=== PATIENT | male | born 2000 | race Caucasian/White ===

== ENCOUNTER 2020-12-20 17:54 | Emergency (ER) | payer BC ==
[2020-12-20] MEDS ORDERED: Fentanyl 100 MCG/2 ML VIAL ONE (19:22)
[2020-12-20] MEDS ORDERED: Ketorolac Tromethamine 30 MG/ML VIAL ONE ×2 (19:22)
== END 2020-12-20 20:23 | disposition home or self-care (01) ==
LOC: ERS 17:54
DX: S39.012A Strain of muscle, fascia and tendon of lower back, initial encounter (principal); X50.1XXA Overexertion from prolonged static or awkward postures, initial encounter
CPT/HCPCS: 72100; 96372; J1885; J3010